=== PATIENT | female | born 1950 | race Caucasian/White ===

== ENCOUNTER 2017-09-11 09:16 | Observation (INO) | payer MEDICARE ==
[2017-09-11] MEDS ORDERED: Lactated Ringer's 1,000 ML IV SCH (10:00)
[2017-09-11 10:26] VITALS: BMI 26.9
[2017-09-11 10:27] LABS: #Lymphocytes 0.7 thou/uL (1.20-3.40); #Monocytes 0.8 thou/uL (0.11-0.59); #Neutrophils 10.6 thou/uL (1.40-6.50); %Basophils 0.1 % (0.0-1.0); %Eosinophils 0.1 % (0.0-10.0); %Lymphocytes 5.8 % (21.0-51.0); %Monocytes 6.8 % (0.0-10.0); %Neutrophils 87.3 % (42.0-75.0); Hemoglobin 12.3 g/dL (12.0-16.0); Mean Corpuscular HGB CONC 31.5 g/dL (32.0-36.0); Mean Corpuscular Hemoglobin 25.4 pg (27.0-31.0); Mean Corpuscular Volume 80.8 fl (81.0-99.0); Mean Platelet Volume 8.4 fL (7.4-10.4); Platelet Count 320 thou/uL (130-400); RBC Distribution Width 14.9 % (11.5-14.5); Red Blood Cell (RBC) Count 4.83 mill/uL (4.20-5.40); White Blood Cell (WBC) Count 12.1 thou/uL (4.8-10.8)
[2017-09-11] MEDS ORDERED: Succinylcholine Chloride 20 MG/ML 10 ml SYRINGE FS ONE (10:45)
[2017-09-11] MEDS ORDERED: PHENYLEPHRINE-NS 100 MCG/ML 10 ML SYRINGE ONE ×3 (10:45→15:21)
[2017-09-11] MEDS ORDERED: Lidocaine 1% PF 5 ML VIAL ONE (10:45)
[2017-09-11] MEDS ORDERED: PROPOFOL 200 MG/20 ML VIAL ONE (10:45)
[2017-09-11] MEDS ORDERED: Dexamethasone 20 MG/5 ML VIAL ONE (10:46)
[2017-09-11] MEDS ORDERED: Ondansetron HCl/PF 4 MG/2 ML Vial ONE (10:46)
[2017-09-11 10:53] LABS: ALT (SGPT) 25 U/L (8-55); AST (SGOT) 36 U/L (5-34); Alkaline Phosphatase 94 U/L (40-150); Anion Gap 11 mmol/L (10-20); BUN (Urea Nitrogen) 18 mg/dL (9.8-20.1); Bilirubin, Total 0.9 mg/dL (0.2-1.2); Calc. Creatinine Clearance 50 mL/min (70-130); Calcium 9.6 mg/dL (7.8-10.44); Carbon Dioxide 24 mmol/L (23-31); Chloride 102 mmol/L (98-107); Estimated GFR-MDRD 45; Globulin 2.7 g/dL (2.4-3.5); Glucose 147 mg/dL (80-115); Potassium 4.3 mmol/L (3.5-5.1); Protein, Total 6.7 g/dL (6.0-8.3); Sodium 133 mmol/L (136-145)
--- NOTE | 2017-09-11 11:26 | RAD ---
THREE VIEWS LEFT HAND: Date: 09-11-17 History: Left wrist and hand injury. FINDINGS: There is a comminuted fracture involving the distal left radial metaphysis with intraarticular extens ion and displacement of fracture fragments. Distal fracture fragment is displaced dorsally by at leas t one-half shaft width. There is apex volar angulation of the fracture fragments. There is a comminut ed fracture involving the distal ulna including ulnar styloid process. The base of the thumb is dislo cated laterally. There are a few adjacent tiny osseous densities which may be related to avulsion inj uries in this region. There is diffuse osteopenia present. There is no other fracture present. Subcut aneous soft tissue swelling is seen dorsal to the level of the wrist. IMPRESSION: 1. Comminuted and displaced as well as angulated fracture involving the distal left radial metaphysis with intraarticular extension of fracture fragments. 2. Comminuted fracture involving the distal ulna and involving the ulnar styloid process. However, ma rgins are sclerotic and the acuteness of the injury involving the distal ulna is difficult to determi ne on this exam. 3. Dislocation of the first metacarpal-carpal joint with adjacent osseous densities suggesting avulsi on fracture fragments probably involving the carpal bone. 4. Subcutaneous soft tissue swelling. POS: [facility]
--- NOTE | 2017-09-11 11:31 | RAD ---
THREE VIEWS LEFT WRIST: Date: 09-11-17 History: Left wrist injury. FINDINGS: As noted on views of the left hand, there is a comminuted fracture involving the distal left radial m etaphysis with intraarticular extension of fracture fragments. There is intraarticular step off prese nt which measures at least 1.5 mm. There is apex volar angulation of the fracture fragments. The dist al fracture fragments are displaced dorsally, especially the more dorsal fracture fragments which are displaced 6-7 mm. There is a fracture involving the distal ulna and ulnar styloid process which is c omminuted. There is sclerosis along the margin of the distal fibula and the exact age of the avulsion injury is uncertain. This may be more recent in origin. There is dislocation involving the first car pal metacarpal joint of the thumb with the base of the metacarpal thumb dislocated laterally. Few oss eous densities are seen in this region, probably related to avulsion injury and although the exact do nor site is uncertain, it probably arises from the carpal bone. There is diffuse osteopenia. Subcutan eous edema is seen about the distal forearm and dorsal aspect of the wrist. IMPRESSION: 1. Comminuted and displaced fractures involving the distal left radius and ulna with intraarticular e xtension of the fracture involving the distal radius. 2. Dislocation of the first metacarpal phalangeal joint of the thumb with a few adjacent tiny fractur e fragments noted. CodeT POS: [facility]
[2017-09-11 12:23] LABS: Bilirubin Small (Negative); Blood, Urine Negative (Negative); Clarity CLOUDY (Clear); Glucose, Urine (Dipstick) Negative (Negative); Leukocyte Negative (Negative); Nitrite Negative (Negative); Protein, Urine (Dipstick) Negative (Neg-Trace); Specific Gravity, Urine 1.025 (1.002-1.036); Urobilinogen 0.2 mg/dL (0.2-1.0)
[2017-09-11 12:27] LABS: Bacteria/HPF None Seen HPF (None Seen); Squamous Epithelial 0-3 HPF (0-3)
[2017-09-11] MEDS ORDERED: Bupivacaine HCl 0.5%/Epinephrine 1:200,000/PF 30 ml Vial ONE (12:32)
[2017-09-11 12:37] LABS: Pathc Cast-AUWi Flag 3.34 (0-2.49)
[2017-09-11] MEDS ORDERED: Dextrose 5% in Water 1,000 ML IV PRN (12:45)
[2017-09-11] MEDS ORDERED: Dextrose 50% Abboject 50 ML SYRINGE SLOW IVP PRN (12:45)
[2017-09-11] MEDS ORDERED: Acetaminophen 500 MG TAB PO PRN (12:48)
[2017-09-11] MEDS ORDERED: Acetaminophen 1,000 MG in Premix Bag 1 BAG IVPB PRN (12:48)
[2017-09-11] MEDS ORDERED: traMADol HCl 50 MG TAB PO PRN ×2 (12:49)
[2017-09-11 12:56] LABS: Crystals/HPF 4+ CA OXALATE HPF (Negative); Hyaline Casts/LPF >50 HYALINE CAST LPF (0-3 Hyaline); Other Casts/LPF None Seen LPF (0-3 Hyaline)
[2017-09-11 12:59] LABS: Renal Epithelial None Seen HPF (0-3); Transitional Epithelial NONE SEEN HPF (0-3)
[2017-09-11] MEDS ORDERED: Clindamycin/D5W 900 MG in Premix Bag 1 BAG IVPB SCH (13:00)
--- NOTE | 2017-09-11 13:02 | EKG ---
Test Reason : LOC Blood Pressure : / mmHG Vent. Rate : 087 BPM Atrial Rate : 087 BPM P-R Int : 116 ms QRS Dur : 100 ms QT Int : 402 ms P-R-T Axes : 078 069 034 degrees QTc Int : 483 ms Normal sinus rhythm Normal ECG No previous ECGs available Confirmed by OREN GARCIA, DR. Nieves ([id number]) on 09/11/2017 1:02:05 PM Referred By: ROLY Confirmed By:DR. Lizbeth LOTT MD
--- NOTE | 2017-09-11 13:03 | HP ---
HISTORY OF PRESENT ILLNESS: Roma Haskins is a 67-year-old female who fell at home when getting out of bed. She felt lightheaded, fell and before hitting the floor caught herself, was aware of her surro undings and was on the floor for just a few seconds before standing up. She went to the bathroom and had some bloody discharge that she was uncertain what it was coming from, her intestinal tract, vagi nal vault or urinary tract. She was brought into the hospital and denies any prior history of GI ble eding. She had a colonoscopy 4 years ago that was normal and was told that she would need to have an other one 10 years after that. She has not had any diarrhea or bleeding episodes in the past. She h as not had any syncopal episodes in the past. She thinks getting out of bed was just orthostatic, al though she did have the bloody discharge, possibly stool. She has a history of laparoscopic gastric bypass, has had problems with osteoporosis, but no abdominal pain this episode or in the past. She t akes occasional Excedrin for migraines, but does not take NSAIDs chronically. She does have chronic pain and has a cervical spine stimulator with the stimulator located in the right paralumbar area, pl aced for pain in her right more than left arm. When she fell, she injured her left wrist. X-rays on admission revealed a distal radial and ulnar fracture. 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 She took a hydrocodone at home prior to coming to the hospital, has been n.p.o. otherw ise. She has had multiple problems with osteoporosis with rib fractures from coughing and fractures of her feet and ankles from minor falls. She has had an ORIF of her right tibia. She has had a previous g astric bypass and a laparoscopic cholecystectomy. ALLERGIES: PENICILLIN. TOBACCO: None. ALCOHOL: None. MEDICATIONS: List has not been reconciled, although she is given it to the nurse. She takes hydroco done as necessary and antispasmodic muscle relaxer. We will await for reconciliation. PAST SURGICAL HISTORY: Laparoscopic gastric bypass, laparoscopic cholecystectomy many years ago succ essful weight loss. This was done in [place]. ORIF of her ankle, ORIF of her right tibia, multiple p odiatric foot surgeries, colonoscopy 4 years ago, normal told to seek followup colonoscopy 10 years a fter that. No polypectomy performed. Up to date on her vaginal exams and Pap smears, up-to-date on her mammograms. LABORATORY: White count 12, hemoglobin 12, sodium 133, potassium 4.3, BUN 18, creatinine 1.21. GFR 45, AST 36, glucose 147. ASSESSMENT AND PLAN: 1. Left radial and ulnar fracture. Consult Orthopedics. Ice pack. Open reduction and internal fix ation per Orthopedics 2. Chronic subluxation, left thumb metacarpal, evaluation per Orthopedics. 3. Suspect gastrointestinal bleeding, in and out catheterization for urinalysis, urine C&S is pendin g. I have consulted Dr. Henry Vazquez as this sounds more like GI bleeding. This smells like GI bleedi ng. The patient reports bleeding. She does not use NSAIDs. Upper endoscopy, possible lower endosco py may be in order. Follow serial hematocrits and repeat CBC in the morning and PPIs. 4. Osteoporosis. 5. Bariatric surgery status, history of gastric bypass. 6. Chronic pain with a cervical spine stimulator, stimulator located to the right flank.
--- NOTE | 2017-09-11 14:12 | CON ---
DATE OF CONSULTATION: 09/11/2017 REQUESTING PHYSICIAN: Dr. Roberson. CONSULTING PHYSICIAN: Cody Mckeon M.D. CHIEF COMPLAINT: Left wrist fracture. HISTORY OF PRESENT ILLNESS: This is a 67-year-old female who is in town staying with some friends when she got up this morning to use the bathroom. She states that she has had some bleeding that she has noticed when she goes to the restroom. She got up to walk when she believes that she had a syncopal episode. She does not recall the events of the fall. When she awoke, she was lying on the floor. She had a deformity to her left wrist. She was brought to our facility for workup and further evaluation. She has been admitted to the Trauma Service at this time. She denies any numbness or tingling. She states she is left hand dominant. She has had a previous right wrist fracture. She states this was 2 years ago. She underwent ORIF at that time. At the time of the fall, she states that she bumped her head. She reports some knee bruising, but overall she denies any other significant injuries to any of her other extremities. ALLERGIES: Include PENICILLINS. PAST MEDICAL HISTORY: Significant for osteoporosis, hypertension, migraine headaches and gastroesophageal reflux disease for which she has had a hiatal hernia repair. PAST SURGICAL HISTORY: Significant for hiatal hernia repair, multiple orthopedic surgeries including right wrist, bilateral feet, right shoulder and right knee. She has also recently had a cervical pain device implanted for history of complex regional pain syndrome to the right upper extremity which developed after her last open reduction internal fixation of right wrist. FAMILY HISTORY: Noncontributory. SOCIAL HISTORY: Patient lives at home in [place], [place] with her mother. She reports that she drinks an occasional glass of wine. She denies any smoking or illicit drug use. REVIEW OF SYSTEMS: A 10 point review of systems was conducted and otherwise negative except for as stated above. PHYSICAL EXAMINATION: VITAL SIGNS: Temperature 98.1, pulse of 99, respiratory rate of 16, blood pressure 135/82. GENERAL: The patient is awake, alert, and oriented. She is in no acute distress. She is pleasant and cooperative with exam today. HEENT: Head is normocephalic. There is a small frontal area soft tissue swelling and hematoma. NECK: Supple. Breathing is nonlabored. EXTREMITIES: The left upper extremity was noted to have a deformity. There is soft tissue swelling and ecchymosis present at the distal radius region. Skin is intact overlying the fracture site. Distal neurovascular status is intact. Patient is able to move her thumb with full motion. Full range of motion in the elbow and shoulder without pain. Remainder of extremities examined and no other injuries are noted at this time. RADIOGRAPHIC FINDINGS: Including 2 views of the left wrist show a distal radius fracture which is comminuted and displaced. This appears to have an intraarticular component. Of notation, there is also a dislocation of the first metacarpophalangeal joint of the thumb with a few adjacent tiny fracture of fragments noted. PLAN: At this time, we have discussed treatment options. In order to restore anatomic alignment and preserved function of the dominant extremity, we will proceed with a external fixator to the left distal radius fracture due to poor bone quality. Risks including infection, nonunion, malunion, worsening condition and thromboembolism have been discussed. She verbalizes understanding. Friends at bedside, coordinating with the family expressed concerns about prior complications resulted after her last open reduction internal fixation on the contralateral side. We will discuss these with Dr. Roberson and anesthesia before proceeding with surgery. KAMARI
[2017-09-11] MEDS ORDERED: Fentanyl 100 MCG/2 ML VIAL ONE (14:23)
[2017-09-11] MEDS ORDERED: Midazolam HCl 2 mg/2 ml Vial ONE ×2 (14:23→15:16)
--- NOTE | 2017-09-11 14:28 | CON ---
DATE OF CONSULTATION: 09/11/2017 HISTORY OF PRESENT ILLNESS: Patient is a 67-year-old white female who was in her normal state of hea lth until 4:00 a.m. this morning when she got out to have urgent bowel movement. She passed out and awoke with her left wrist hurting. She subsequently has been diagnosed with a left wrist fracture. During this episode, she did not have any chest pain, no abdominal pain, nausea or vomiting. She did have some blood per rectum and she is unsure where that blood is coming from. She said she saw it o n the toilet tissue. She did have some bowel movements, but she described these as brown without timmy ck or red. She has had a history of ulcers in the past, has undergone a gastric bypass in the past a nd also a fundoplication. She denies any recent weight loss. She does use Excedrin Migraine approxi mately 2 every other day. PAST MEDICAL HISTORY: Significant for severe osteoporosis and multiple surgeries related to that. PAST SURGICAL HISTORY: Includes a cholecystectomy, gastric bypass, fundoplication, colonoscopy appro ximately 5-6 years ago, cholecystectomy, bladder surgery. ALLERGIES: PENICILLIN. SOCIAL HISTORY: She does not smoke or drink. FAMILY HISTORY: Negative for GI or liver disease. REVIEW OF SYSTEMS: Constitutional: No fever or chills, no weight loss. Eyes: No blurred vision or double vision. ENT: No sore throat or earaches. Cardiovascular: No chest pain or palpitation. P ulmonary: No shortness of breath, cough or wheezing. Gastrointestinal: See above. Genitourinary: No hematuria or dysuria. Musculoskeletal: Positive for left wrist pain. Skin: No rashes. Neurol ogic: No numbness or seizure activity. PHYSICAL EXAMINATION: GENERAL: Shows a pale and white female, in no acute distress. VITAL SIGNS: Temperature 98.1, pulse of 99, respiratory rate 16, blood pressure 135/82. HEENT: Unremarkable. NECK: Supple. CHEST: Clear. CARDIOVASCULAR: Regular rate and rhythm. ABDOMEN: Soft, nontender, without organomegaly or masses. Bowel sounds are present and normoactive. RECTAL: Deferred. EXTREMITIES: Normal. LABORATORY: Shows a white blood cell count of 12.1, hemoglobin of 12.3, hematocrit 39.0. Chemistrie s show a BUN 18, creatinine 1.21. Urinalysis is essentially normal. ASSESSMENT: 1. Syncope -- etiology unknown, although possible upper gastrointestinal bleed. 2. Severe osteoporosis. 3. Left wrist fracture. 4. Status post fundoplication. 5. Status post gastric bypass. 6. History of ulcer disease. 7. Hematochezia -- normal colonoscopy 5-6 years ago. RECOMMENDATIONS: 1. PPI. 2. EGD prior to the wrist surgery.
[2017-09-11] MEDS ORDERED: Fentanyl 250 MCG/5 ML VIAL ONE (15:16)
[2017-09-11] MEDS ORDERED: Levofloxacin 500 mg/D5W 100 ml Premix Bag ONE (15:44)
[2017-09-11] MEDS ORDERED: Clindamycin/D5W 900 mg/50 ml Premix Bag ONE (15:44)
[2017-09-11] MEDS ORDERED: Fentanyl 100 MCG/2 ML VIAL SLOW IVP PRN (17:34)
[2017-09-11] MEDS ORDERED: Promethazine HCl 25 MG/ML VIAL SLOW IVP PRN (17:39)
[2017-09-11] MEDS ORDERED: Morphine Sulfate 2 MG/ML SYRINGE SLOW IVP PRN (17:39)
[2017-09-11] MEDS ORDERED: HYDROmorphone 2 MG/ML VIAL SLOW IVP PRN (17:39)
--- NOTE | 2017-09-11 18:04 | RAD ---
LEFT WRIST RADIOGRAPHS 3 VIEWS: Date: 09/11/17 PROVIDED CLINICAL HISTORY: External fixation. FINDINGS/IMPRESSION: Multiple spot fluoroscopic images of the left wrist demonstrate changes of external fixation. POS: [facility]
[2017-09-11] MEDS ORDERED: HYDROcodone/Acetaminophen 5/325 mg Tablet PO PRN (18:36)
[2017-09-11] MEDS ORDERED: HYDROcodone/Acetaminophen 10/325 mg Tablet PO PRN (19:08)
--- NOTE | 2017-09-11 19:12 | OP ---
PREOPERATIVE DIAGNOSIS: Possible upper gastrointestinal bleed. PROCEDURE IN DETAIL: After informed consent was obtained, the patient was placed in the left lateral decubitus position. Anesthesia administered per the Anesthesia Department. Forward viewing endosco pe was inserted into the esophagus under direct visualization with ease and passed into the gastric r emnant with ease. The gastric remnant appeared normal. No blood was seen in the gastric remnant. T he anastomosis was normal except for multiple small ulcerations. None of these were bleeding. None had visible vessels. Biopsies were taken from a few areas. The jejunum was normal except for again some small erosions and ulcerations. No active bleeding was seen. ASSESSMENT: 1. Multiple small nonbleeding anastomotic ulcerations. 2. Status post gastric bypass. RECOMMENDATIONS: 1. Discontinue Excedrin Migraine. 2. Begin ranitidine 150 mg p.o. b.i.d. 3. We would avoid proton pump inhibitors in her case secondary to her severe osteoporosis.
[2017-09-11] MEDS ORDERED: Non-Formulary Item 1 EACH (Ibandronate Sodium [Boniva] 1 TAB) PO SCH (19:15)
[2017-09-11 19:59] LABS: #Lymphocytes 0.7 thou/uL (1.20-3.40); #Monocytes 0.6 thou/uL (0.11-0.59); #Neutrophils 8.8 thou/uL (1.40-6.50); %Eosinophils 0.1 % (0.0-10.0); %Lymphocytes 7.1 % (21.0-51.0); %Monocytes 5.5 % (0.0-10.0); %Neutrophils 87.3 % (42.0-75.0); Hemoglobin 11.9 g/dL (12.0-16.0); Mean Corpuscular HGB CONC 32.5 g/dL (32.0-36.0); Mean Corpuscular Hemoglobin 25.8 pg (27.0-31.0); Mean Corpuscular Volume 79.4 fl (81.0-99.0); Mean Platelet Volume 7.7 fL (7.4-10.4); Platelet Count 304 thou/uL (130-400); RBC Distribution Width 14.9 % (11.5-14.5); Red Blood Cell (RBC) Count 4.59 mill/uL (4.20-5.40); White Blood Cell (WBC) Count 10.1 thou/uL (4.8-10.8)
[2017-09-11] MEDS: SUMAtriptan Succinate 50 MG TAB PO PRN (20:06)
[2017-09-11] MEDS: Famotidine 20 MG TAB PO SCH (20:09)
[2017-09-11] MEDS: Pantoprazole 40 MG VIAL IVP SCH (20:09)
[2017-09-11] MEDS ORDERED: Ondansetron ODT 8 MG TAB PO PRN (20:25)
[2017-09-11] MEDS ORDERED: Metoclopramide HCl 10 MG/2 ML VIAL IVP PRN (20:25)
[2017-09-11] MEDS ORDERED: Ondansetron ODT 4 MG TAB PO PRN (20:25)
[2017-09-11] MEDS ORDERED: Ondansetron ODT 8 MG TAB SL PRN (20:25)
[2017-09-11] MEDS ORDERED: Ondansetron ODT 4 MG TAB SL PRN (20:33)
[2017-09-11] MEDS ORDERED: Ondansetron HCl/PF 4 MG/2 ML Vial IVP PRN (20:33)
[2017-09-11] MEDS: Gabapentin 300 MG CAP PO PRN (20:59)
[2017-09-11] MEDS: HYDROcodone/Acetaminophen 5/325 mg Tablet PO PRN (20:59)
[2017-09-12] MEDS: HYDROcodone/Acetaminophen 5/325 mg Tablet PO PRN ×2 (03:27→22:31)
[2017-09-12 03:57] LABS: #Lymphocytes 1.2 thou/uL (1.20-3.40); #Monocytes 0.9 thou/uL (0.11-0.59); %Basophils 0.1 % (0.0-1.0); %Eosinophils 0.1 % (0.0-10.0); %Lymphocytes 11.7 % (21.0-51.0); %Neutrophils 79.1 % (42.0-75.0); Hemoglobin 10.6 g/dL (12.0-16.0); Mean Corpuscular HGB CONC 31.3 g/dL (32.0-36.0); Mean Corpuscular Hemoglobin 25.1 pg (27.0-31.0); Mean Corpuscular Volume 80.2 fl (81.0-99.0); Platelet Count 276 thou/uL (130-400); RBC Distribution Width 15.1 % (11.5-14.5); Red Blood Cell (RBC) Count 4.22 mill/uL (4.20-5.40); White Blood Cell (WBC) Count 10.1 thou/uL (4.8-10.8)
[2017-09-12 04:20] LABS: ALT (SGPT) 17 U/L (8-55); AST (SGOT) 28 U/L (5-34); Albumin 3.7 g/dL (3.4-4.8); Alkaline Phosphatase 85 U/L (40-150); Anion Gap 9 mmol/L (10-20); BUN (Urea Nitrogen) 12 mg/dL (9.8-20.1); Bilirubin, Total 1.4 mg/dL (0.2-1.2); Calc. Creatinine Clearance 77 mL/min (70-130); Carbon Dioxide 27 mmol/L (23-31); Chloride 102 mmol/L (98-107); Estimated GFR-MDRD 73; Globulin 2.5 g/dL (2.4-3.5); Glucose 138 mg/dL (80-115); Potassium 4.9 mmol/L (3.5-5.1); Protein, Total 6.2 g/dL (6.0-8.3); Sodium 133 mmol/L (136-145)
[2017-09-12] MEDS ORDERED: GoLYTELY 4,000 ml Bottle PO SCH ×2 (08:15→20:15)
[2017-09-12] MEDS: Pantoprazole 40 MG VIAL IVP SCH ×2 (08:41→21:13)
[2017-09-12] MEDS: Lisinopril 20 MG TAB PO SCH (08:41)
[2017-09-12] MEDS: DULoxetine 30 MG CAP PO SCH (08:43)
[2017-09-12] MEDS: Famotidine 20 MG TAB PO SCH ×2 (08:43→21:12)
[2017-09-12] MEDS: Polyethylene Glycol 3350 17 GM Packet PO SCH (08:44)
[2017-09-12] MEDS: Gabapentin 300 MG CAP PO PRN (08:49)
--- NOTE | 2017-09-12 09:08 | PRG ---
DATE OF SERVICE: 09/12/2017 Ashley Haskins is doing well today. PHYSICAL EXAMINATION: VITAL SIGNS: Temperature 98.3 degrees, 94 heart rate, 166/84. The patient had an episode of rectal bleeding yesterday, but none since that time. Her hemoglobin si nce admission has dropped from 12.3 to 10.6. She had in and out urine catheterization which did not show any significant blood and there were no changes to suggest a UTI. Her urine culture shows no gr owth at 24 hours. Blood cultures are negative. The patient had an external fixator, left wrist. I have discussed with Dr. Mckeon, he feels it is safe with prophylactic IV antibiotics for a colonos copy today. I have also talked with Dr. Ivette Arboleda and consulted for a gynecological exam as wel l as ordered a pelvic ultrasound. LUNGS: Clear to auscultation. CARDIAC: Regular rate and rhythm without murmur or gallop. ABDOMEN: Soft, nontender. Basic metabolic profile is normal. ASSESSMENT AND PLAN: 1. Bleeding, suspect gastrointestinal. We will ask Dr. Vazquez or one of his associates to perform a c olonoscopy today, discussion per above. 2. I have talked to Dr. Ivette Arboleda who will see her to perform a gynecological exam either inpat ient today or outpatient tomorrow. We will order a pelvic ultrasound for evaluation of this bleeding which is probably gastrointestinal, but cannot rule out gynecological source. 3. Osteoporosis, status post open reduction internal fixation external fixator, left radial and ulna r fracture.
--- NOTE | 2017-09-12 09:09 | OP ---
DATE OF OPERATION: 09/11/2017 OPERATION: External fixation of left distal radius fracture. PREOPERATIVE DIAGNOSIS: Left comminuted and displaced distal radius fracture. POSTOPERATIVE DIAGNOSIS: Left comminuted and displaced distal radius fracture. COMPLICATIONS: None. ESTIMATED BLOOD LOSS: Minimal. SURGEON: Cody Mckeon M.D. ANESTHESIA: General plus regional. INDICATIONS: Ms. Haskins is a 67-year-old female who fell. She sustained a fracture of the distal rad ius. She has severe osteoporosis and a history of multiple fractures. She has a history of a chroni c dislocation of her first MCP joint on the left hand. She was indicated for external fixation of th e distal radius to restore anatomic alignment and promote healing. Risks have been reviewed in detpatricia l. She has elected to proceed with the operation. We have decided on external fixation given the pa tient's severe osteoporosis and very distal fracture. Poor fixation with a locking plate would be ve ry likely. DESCRIPTION OF OPERATION: Ms. Haskins was identified in the preoperative holding area. Her correct ex tremity was marked. She was carried to the operating room. She was positioned supine. General anes thesia was induced. A multidisciplinary timeout was performed. The left upper extremity was prepped and draped in sterile fashion. We began the procedure with making two small incisions over the proximal radius. We dissected down t hrough the subcutaneous tissues and deeper tissues with a hemostat bluntly. We reached the bony leve l. At this point, we palpated the bone with the tip of our external fixator pin. Once we were cente red on the radius, we inserted our guide pin appropriately. Next, we placed a second external fixato r pin. X-rays were taken, confirming position and alignment. Next, we made two small incisions over the second metacarpal. We again palpated the middle of the bone. We then placed two external fixat or pins across the metacarpal. At this point, we applied our pin-to-bar clamps. We then placed our external fixator bar. Next, we reduced the fracture using intraoperative x-ray. Once we had an acce ptable position reconstituting length and height, we proceeded to tighten our external fixator. Ther e was acceptable alignment and position, there were no complications. We thoroughly irrigated and th en placed appropriate bandages. The patient was taken to the recovery room in good condition. IMPLANTS: Four external fixation pins were used as well as the [employer] distal radius external fixato r device.
--- NOTE | 2017-09-12 11:16 | ULT ---
PELVIC ULTRASOND: DATE: 09/12/17. COMPARISON: None. HISTORY: Postmenopausal bleeding. TECHNIQUE: Multiplanar, ly scale sonographic imaging of the pelvis obtained with transabdominal and endovagina l imaging. FINDINGS: No significant free fluid is seen in the pelvis. Neither ovary is visualized on this examination rhonda pite transabdominal and endovaginal imaging. The uterus measures 4.7 x 2.9 x 3.9 cm and demonstrates a normal endometrial thickness in the 1-2 mm range. No uterine mass identified. IMPRESSION: No endometrial thickening noted. Ovaries are nonvisualized. POS: [facility]
[2017-09-12] MEDS ORDERED: Ketorolac Tromethamine 30 MG/ML VIAL IVP SCH (11:30)
[2017-09-12] MEDS: Morphine 4 MG/ML VIAL SLOW IVP PRN ×2 (13:52→18:52)
[2017-09-12] MEDS: tiZANidine HCl 4 MG TAB PO PRN ×2 (13:57→21:11)
[2017-09-12] MEDS ORDERED: Ketorolac Tromethamine 30 MG/ML VIAL IVP PRN (18:00)
[2017-09-12] MEDS: SUMAtriptan Succinate 50 MG TAB PO PRN (22:30)
[2017-09-13] MEDS: Morphine 4 MG/ML VIAL SLOW IVP PRN ×2 (03:29→09:16)
[2017-09-13 08:38] LABS: #Eosinphils 0.1 thou/uL (0.0-0.7); #Lymphocytes 1.7 thou/uL (1.20-3.40); #Monocytes 1.1 thou/uL (0.11-0.59); #Neutrophils 6.8 thou/uL (1.40-6.50); %Basophils 0.4 % (0.0-1.0); %Eosinophils 1.5 % (0.0-10.0); %Lymphocytes 17.6 % (21.0-51.0); %Monocytes 11.3 % (0.0-10.0); %Neutrophils 69.3 % (42.0-75.0); Hemoglobin 10.4 g/dL (12.0-16.0); Mean Corpuscular HGB CONC 32.1 g/dL (32.0-36.0); Mean Corpuscular Hemoglobin 25.8 pg (27.0-31.0); Mean Corpuscular Volume 80.3 fl (81.0-99.0); Mean Platelet Volume 8.1 fL (7.4-10.4); Platelet Count 274 thou/uL (130-400); RBC Distribution Width 15.3 % (11.5-14.5); Red Blood Cell (RBC) Count 4.02 mill/uL (4.20-5.40); White Blood Cell (WBC) Count 9.8 thou/uL (4.8-10.8)
[2017-09-13] MEDS: Pantoprazole 40 MG VIAL IVP SCH (09:14)
[2017-09-13] MEDS: DULoxetine 30 MG CAP PO SCH ×2 (09:31→13:40)
[2017-09-13] MEDS: Ascorbic Acid 500 mg Chewable Tablet PO SCH ×2 (09:31→13:41)
[2017-09-13] MEDS: Lisinopril 20 MG TAB PO SCH ×2 (09:32→13:41)
[2017-09-13] MEDS: Polyethylene Glycol 3350 17 GM Packet PO SCH ×2 (09:32→13:41)
[2017-09-13] MEDS: Famotidine 20 MG TAB PO SCH ×2 (09:32→13:41)
[2017-09-13] MEDS ORDERED: Clindamycin/D5W 900 mg/50 ml Premix Bag ONE (11:35)
--- NOTE | 2017-09-13 11:43 | PRG ---
DATE OF SERVICE: 09/13/2017 HISTORY: Ms. Haskins is doing well today. She has been over to Dr. Arboleda office for a pelvic exam wh ich is normal. Pelvic ultrasound was normal. Pap smears and biopsies obtained of the cervix. The p atient is scheduled for a colonoscopy, initially seen by Dr. Vazquez today, scheduled for colonoscopy by Dr. Saez. I anticipate that she will be able to go home today after that procedure. Her hemoglobin this morning is 10.4, it is stable. She has not had any more bleeding since yesterday. Pending her colonoscopy she will be able to go home. She will resume her bariatric diet and home medications.
--- NOTE | 2017-09-13 11:54 | DIS ---
DISCHARGE DIAGNOSES: 1. Bariatric status history of Jojo-en-Y gastric bypass. 2. Severe osteoporosis. 3. Status post gastrointestinal bleeding and fall resulting in a left wrist radial and ulnar fractur e requiring Dr. Mckeon external fixator due to her severe osteoporosis. She will follow up with radha palma her local orthopedic surgeon in [place] in the next few weeks. She has been instructed on pin care. 4. The patient underwent a workup for GI bleeding, suspect including in and out catheterization with out hematuria and urinary was not the source, her urine cultures are negative to date. 5. She was seen by Dr. Arboleda Gynecology and had a Pap smear and cervical biopsy. A vaginal exam wa s otherwise unremarkable. Pelvic ultrasound was normal. 6. She was seen initially by Dr. Vazquez and endoscopy planned for Dr. Millan, but due to inadequate pr ep underwent another days prepped and today will be undergoing colonoscopy by Dr. Saez, results pendi ng. 7. Severe osteoporosis. 8. History of gastric bypass. 9. History of multiple fractures. 10. Severe kyphosis. 11. Chronic upper extremity pain, mainly from an orthopedic procedure with a nerve stimulator cervic al spine stimulator located right flank. Note, the external fixator is on the left wrist. HISTORY: A 67-year-old female fell getting up out of bed, experienced GI bleeding, suspect although no stool was visualized. She had 3 more episodes. At the that time initially so she fell and fractu ring her wrist. She was admitted to the hospital, seen by Dr. Mckeon underwent ORIF and external fixator placement. She underwent the above procedures. She was discharged home to resume her home m edications. She has hydrocodone 10/325 at home, takes Boniva, Tizanidine, Imitrex, Toprol, Cymbalta, Neurontin, lisinopril. She will follow up with Dr. Mckeon in the next few weeks.
[2017-09-13] MEDS ORDERED: Lidocaine 1% PF 5 ML VIAL ONE (12:06)
[2017-09-13] MEDS ORDERED: PROPOFOL 200 MG/20 ML VIAL ONE (12:06)
[2017-09-13] MEDS ORDERED: Ondansetron HCl/PF 4 MG/2 ML Vial IVP PRN (13:14)
[2017-09-13] MEDS ORDERED: Promethazine HCl 25 MG/ML VIAL SLOW IVP PRN (13:14)
[2017-09-13] MEDS ORDERED: Promethazine HCl 25 MG/ML VIAL IM SCH (13:14)
--- NOTE | 2017-09-13 13:32 | CON ---
DATE OF CONSULTATION: 09/13/2017 HISTORY OF PRESENT ILLNESS: She is a 67-year-old white female who was recently admitted for a left f orearm fracture. She apparently on questioning felt to have an urgent bowel movement or some lower a bdominal cramping sensation and then had some possible mucoid bloody discharge noted in her underwear and when she awakened from her fall, she had noted that she had significant left arm fracture which she has apparently had surgical external fixation performed during this hospital stay. I have been c onsulted to rule out any possibility of postmenopausal bleeding as etiology of the bleeding along wit h GI counseling in regards to this. She apparently had a cath UA which was negative hematuria. PAST MEDICAL HISTORY: Notable for severe osteoporosis and multiple surgeries related to that. PAST SURGICAL HISTORY: Includes cholecystectomy, gastric bypass, fundoplication, colonoscopy approxi mately 5-6 years ago and bladder surgery. ALLERGIES: She has allergy to PENICILLIN. SOCIAL HISTORY: Nonsmoker, does not drink. FAMILY HISTORY: Negative for GI or gynecologic cancers. REVIEW OF SYSTEMS: As per HPI. PHYSICAL EXAMINATION: VITAL SIGNS: Her temperature is 98.1, respirations 16, blood pressure 130/82. She has her left arm in a sling with external fixation device in place. ABDOMEN: Soft and nontender with no palpable masses. Bowel sounds were present. PELVIC: Her vulva and vagina had no lesions. There was no bleeding seen. Vaginal vault had no blee ding seen. Cervix had no lesions. Pap smear was obtained to do further complete workup to rule out any gynecologic etiology for the bleeding. She had an ultrasound done with uterus measuring 4.7 x 2. 9 x 3.9 cm. Endometrial lining was thin at 1-2 mm, no adnexal masses were seen. Uterus on exam toda y was small and nontender. Adnexa nontender with no masses. An endometrial biopsy was also performe d for completeness and it sounded to 8 cm x 2 cm passes with scant tissue. ASSESSMENT: This is a 67-year-old postmenopausal woman with recent fall with left forearm fracture n ecessitating external fixation reduction by [facility]opedic Service. Questionable possible vaginal bleedi ng versus GI source and workup current is ongoing. Recent transvaginal ultrasound showed thin endome trial lining 1-2 mm with no adnexal masses or uterine masses seen. Her cervix had no lesions today. Endometrial biopsy and Pap smear was obtained. PLAN: Is to follow up pathology results. At this time, I do not see any concern in regards to gynec ologic standpoint for source of recent bleeding episode.
--- NOTE | 2017-09-13 13:48 | OP ---
DATE OF PROCEDURE: 09/13/2017 PROCEDURE: Colonoscopy with biopsy. SURGEON: Enoc Saez M.D. ANESTHESIA: Medication given per Anesthesiology Department. PREPROCEDURE DIAGNOSIS: Rectal bleeding. POSTPROCEDURE DIAGNOSES: 1. Distal rectal inflammation without obvious hemorrhoids. 2. Mild mucosal inflammation in the sigmoid colon. 3. Redundant left colon, otherwise normal exam. PROCEDURE IN DETAIL: A written consent was obtained prior to procedure. After adequate sedation, re ctal exam performed was normal. No visible external hemorrhoids were seen. Endoscope was advanced t o the cecum. The quality of the bowel prep was good. The left colon was somewhat redundant. The ce cum, ascending colon, hepatic flexure, transverse colon, splenic flexure, and descending colon appear ed normal. A 5-cm segment of a granular inflammation was noted in the sigmoid colon. No overt ulcer ation was seen. Biopsies were obtained. The sigmoid and rectosigmoid colon appeared normal otherwis e. In the last 2 cm of the rectum above the dentate line, the mucosal inflammation was seen without any mucosal lesion or protuberance. Retroflexion did not show any obvious hemorrhoids. Biopsies obt ained from the distal inflamed area. The colon was then decompressed, the instrument was then fully removed. The patient tolerated the procedure well. ASSESSMENT: 1. Distal rectal inflammation, likely nonspecific, biopsied. 2. Mild inflammation in the sigmoid colon, biopsied. 3. Otherwise, no other significant or aggressive process seen. RECOMMENDATIONS: 1. Await biopsy result. 2. Hydrocortisone suppository t.i.d. 3. Patient can be discharged to home from GI standpoint.
[2017-09-13 16:20] VITALS: BP 159/95; TEMP 98.2
[2017-09-13] MEDS ORDERED: Hydrocortisone Acetate 25 MG Suppository PR SCH (21:00)
== END 2017-09-13 14:30 | disposition home or self-care (01) ==
LOC: SURG A 09:16 → INTOOBSV 12:45 → OBSVTOIN 12:45
PROVIDERS: ADMIT Specialist; ATTEND Internal Medicine Gastroenterology
PROC: 0PSJ35Z Reposition Left Radius with External Fixation Device, Percutaneous Approach (ICD-10-PCS; principal; 2017-09-11)
PROC: 0DB78ZX Excision of Stomach, Pylorus, Via Natural or Artificial Opening Endoscopic, Diagnostic (ICD-10-PCS; 2017-09-11)
PROC: 0DBP8ZX Excision of Rectum, Via Natural or Artificial Opening Endoscopic, Diagnostic (ICD-10-PCS; 2017-09-13)
PROC: 0DBN8ZX Excision of Sigmoid Colon, Via Natural or Artificial Opening Endoscopic, Diagnostic (ICD-10-PCS; 2017-09-13)
DX: S52.502A Unspecified fracture of the lower end of left radius, initial encounter for closed fracture (principal); S52.202A Unspecified fracture of shaft of left ulna, initial encounter for closed fracture; S63.112A Subluxation of metacarpophalangeal joint of left thumb, initial encounter; K28.9 Gastrojejunal ulcer, unspecified as acute or chronic, without hemorrhage or perforation; K55.8 Other vascular disorders of intestine; M81.0 Age-related osteoporosis without current pathological fracture; M40.209 Unspecified kyphosis, site unspecified; G89.29 Other chronic pain; I10 Essential (primary) hypertension; G43.909 Migraine, unspecified, not intractable, without status migrainosus; Z88.0 Allergy status to penicillin; Z98.84 Bariatric surgery status; Z98.890 Other specified postprocedural states; W06.XXXA Fall from bed, initial encounter; Y92.003 Bedroom of unspecified non-institutional (private) residence as the place of occurrence of the external cause
CPT/HCPCS: 20690; 25606; 43239; 45380; 51701; 73110; 73130; 76001; 76830; 76856; 80053 ×2; 81001; 85025 ×4; 86850; 86900; 86901; 87040; 87086; 88305 ×2; 93005; 96361 ×2; 96374; 96375 ×2; 96376 ×2; 97139 ×2; C1713; G0378; G0379; 36415; 93010; A4216; C9113; J0131; J0670; J1100; J1885; J1956; J2001; J2250; J2270; J2405; J2704; J2765; J3010; J3490; Q0162